=== PATIENT | male | born 2000 | race Caucasian/White ===

== ENCOUNTER 2020-03-05 12:09 | Emergency (ER) | payer SELFPAY ==
[~2020-03-05] VITALS: Ht 177.8 cm; Wt 66.5 kg
--- NOTE | 2020-03-05 12:28 | NUR ---
C/O RASH ON GROIN AREA. PLACED ON VITALS MONITORS, ER PROVIDER AT BEDSIDE FOR EVAL.
[2020-03-05] MEDS ORDERED: CEFTRIAXONE 250 MG ONE (13:11)
[2020-03-05] MEDS ORDERED: AZITHROMYCIN 500 MG TABLET ONE (13:11)
--- NOTE | 2020-03-05 13:20 | NUR ---
PT MEDICATED PER MAR.
[2020-03-05 13:28] VITALS: BP 127/83
[2020-03-05] MEDS ORDERED: CEFTRIAXONE 250 MG IM ONE (13:30)
[2020-03-05] MEDS ORDERED: AZITHROMYCIN 500 MG TABLET PO ONE (13:30)
== END 2020-03-05 13:33 | disposition home or self-care (01) ==
LOC: ED 12:44
DX: R21 Rash and other nonspecific skin eruption (principal)
CPT/HCPCS: 96372; 99283; J0696